=== PATIENT | female | born 1930 | race Caucasian/White ===

== ENCOUNTER 2016-07-07 20:59 | Inpatient (IN) | payer OTHER ==
[~2016-07-07] VITALS: Ht 152.4 cm; Wt 54.4 kg
[~2016-07-07 20:59] MED LIST: ASCO-339 PO; CHOL100038 PO; FLUT1DIS5 INH; FOLI-43 PO; MET2.5 PO; OMEP20CA4 PO
[2016-07-07 21:15] VITALS: BP_SYST 139
--- NOTE | 2016-07-07 21:15 | NUR ---
Patient to ER bed 4 to gown for evaluation. Side rails up. Report given to CAMILLE Young.
--- NOTE | 2016-07-07 21:26 | NUR ---
Patient to ER C/O generalized weakness & flu like symptoms, Patient states that for the past 4 days she had body aches, chills, fever, sore throat, dry cough, nasal congestion and dizziness. AAOx4, unlabored breathing, no signs of acute distress.
--- NOTE | 2016-07-07 21:36 | NUR ---
ER MD Barakat at bedside for evaluation
[2016-07-07] MEDS ORDERED: NACL 0.9% 1,000 ML IV ONE (22:00)
--- NOTE | 2016-07-07 22:20 | NUR ---
Terrazzo Finisher at bedside for blood draw. Patient identified x2
[2016-07-07 22:44] LABS: LYMPHOCYTES # (AUTO) 0.8 K/uL (1.0-5.5)
[2016-07-07 22:49] LABS: ANION GAP 4 (5-15); CALCIUM 9.4 mg/dL (8.4-11.0); CHLORIDE 109 mmol/L (98-107); CREATININE 0.74 mg/dL (0.55-1.30); GLUCOSE 139 mg/dL (70-99); POTASSIUM 3.6 mmol/L (3.5-5.1); SODIUM SERUM 137 mmol/L (136-145); UREA NITROGEN, BLOOD 13 mg/dL (8-21)
[2016-07-07 22:49] LABS: BASOPHILS # (AUTO) 0.2 K/uL (0.0-0.2); BASOPHILS % (AUTO) 1.3 % (0.0-2.0); EOSINOPHILS # (AUTO) 0.2 K/uL (0.0-0.4); EOSINOPHILS % (AUTO) 1.6 % (0.0-4.0); HEMATOCRIT 38.4 % (36-48); HEMOGLOBIN 12.4 g/dL (12.0-16.0); LYMPHOCYTES % (AUTO) 5.7 % (20.5-51.5); MEAN CORPUSCULAR HEMOGLOBIN 27 pg (27-31); MEAN CORPUSCULAR HGB CONC 32 % (32-36); MEAN CORPUSCULAR VOLUME 83 fL (79.0-98.0); MONOCYTES # (AUTO) 0.2 K/uL (0.0-1.0); MONOCYTES % (AUTO) 1.7 % (1.7-9.3); NEUTROPHILS # (AUTO) 13.1 K/uL (1.8-7.7); NEUTROPHILS % (AUTO) 89.7 % (40.0-70.0); PLATELET COUNT (AUTO) 378 K/uL (130-430); RED BLOOD CELL COUNT(AUTO) 4.63 MIL/uL (4.2-6.2); RED CELL DISTRIBUTION WIDTH 17.5 % (9.0-15.0); WHITE BLOOD COUNT (AUTO) 14.5 K/uL (4.8-10.8)
--- NOTE | 2016-07-07 22:50 | NUR ---
# 22 gauge angiocath placed to left forearm. Use of asceptic technique. Opsite placed over site. Blood return noted. Flushed with 10 cc of normal saline. No evidence of infiltration noted. Patient tolerated well.
[2016-07-07 22:54] LABS: ALANINE AMINOTRANSFERASE 12 U/L (12-78); ALBUMIN 3.5 g/dL (3.4-4.8); ASPARTATE AMINOTRANSFERASE 17 U/L (10-37); TOTAL BILIRUBIN 0.3 mg/dL (0.0-1.0); TOTAL PROTEIN, SERUM 7.5 g/dL (6.4-8.3)
--- NOTE | 2016-07-07 23:00 | NUR ---
SEVERE SEPSIS RISK ER MD Barakat aware. Awaiting orders
[2016-07-07 23:32] LABS: BILIRUBIN,URINE NEGATIVE (NEGATIVE); BLOOD, URINE NEGATIVE (NEGATIVE); CLARITY/URINE CLEAR (CLEAR); COLOR,URINE YELLOW (YELLOW); GLUCOSE,URINE NEGATIVE (NEGATIVE); KETONES,URINE NEGATIVE (NEGATIVE); LEUKOCYTE ESTERASE ,URINE NEGATIVE (NEGATIVE); NITRITE, URINE NEGATIVE (NEGATIVE); PH,URINE 6.5 (5.0-8.0); PROTEIN URINE NEGATIVE (NEGATIVE); UROBILINOGEN,URINE 0.2 (0.2-1.0)
[2016-07-07] MEDS ORDERED: RANI-362 PO (23:43)
--- NOTE | 2016-07-07 23:43 | NUR ---
Medication reconciliation completed with information provided by - verbal from patient. Any prior medication reconciliation on file was reviewed and corrected.
[2016-07-08] VITALS (8 sets, daily range): BP systolic 94–125
[2016-07-08] MEDS ORDERED: VANCOMYCIN HCL 1,000 MG in NS 250 ML IV ONE ×2
[2016-07-08] MEDS ORDERED: CEFEPIME 1 GM in D5W 50 ML IV ONE ×2
[2016-07-08] MEDS ORDERED: CEFEPIME 1 GM/VIAL (MAXIPIME) ONE (00:13)
[2016-07-08] MEDS ORDERED: VANCOMYCIN HCL 1000 MG/VIAL IV ONE (00:13)
[2016-07-08] MEDS ORDERED: NACL 0.9% 1,000 ML IV ONE (00:30)
--- NOTE | 2016-07-08 00:54 | NUR ---
Patient will be admitted to care of DR MADISON. Admitted to [facility] IN unit. Will go to room 135. Belongings list completed. Summary report printed. Report will be given at bedside.
--- NOTE | 2016-07-08 01:02 | NUR ---
Transfer to [facility] [place]. IV present no sign or symptom of infiltration.
--- NOTE | 2016-07-08 01:12 | NUR ---
Admission Note Received patient from ER with diagnosis of sepsis via gurney. Initial Plan of Care discussed-patient verbalized understanding. Family at bedside. Oriented to room, call light, pain management and safety.
--- NOTE | 2016-07-08 01:15 | NUR ---
INITIAL ADMISSION NOTE Patient resting on the bed. No acute distress. Respiration even and unlabored. AO x 4. Denied of pain. Skin warm and dry to touch. IV intact to LFA, no redness, no swelling, no drainage, infusing vancomycin from ER. at bed side. Discussed the safety issue, use call light when need help, and plan of care, verbally understanding. Safety measure maintained. Call light within reached. Bed in low position, side rails up. Will continue to monitor.
--- NOTE | 2016-07-08 01:40 | NUR ---
PATIENT REFUSED COOLING MEASURE Patient with mtnh=065.5, no acute distress. Offered cooling measure, however patient refused. Explained the risk and benefit of using cooling measure, verbally understanding but still refused. Will notify MD to obtain the order for fever.
--- NOTE | 2016-07-08 02:02 | NUR ---
PAGED PAGED DOCTOR OSVALDO FOR ORDERS SPOKE WITH NITA
--- NOTE | 2016-07-08 02:35 | NUR ---
VERIFY ALLERGIES Upon admission record, patient with allergies to Penicillins, Hydrocodone and Acetaminophen (from Vicodin). Per patient she was taking Tylenol at home for her fever and no allergy reaction to her. She never taking Vicodin. Allergies also verify with patient's daughter.
--- NOTE | 2016-07-08 02:55 | NUR ---
ORDER RECEIVED FROM RYAN MELÉNDEZ Informed Dr. Baires patient admitted with fever and no order for fever. MD with order Tylenol 650mg PO Q4hrs PRN for mild pain or fever. Also informed MD patient admitted diagnosis was sepsis, NS 2L bolus given in ER, lactic acid and blood culture done, no IVF ordered. MD ordered NS at 75ml/hr. Orders read back and okay to MD.
[2016-07-08] MEDS ORDERED: ACETAMINOPHEN 325 MG TABLET PO PRN (03:00)
[2016-07-08] MEDS: NACL 0.9% 1,000 ML IV SCH ×3 (03:41→20:31)
--- NOTE | 2016-07-08 03:42 | NUR ---
TYLENOL GIVEN Jcwq=457.5, Tylenol 650mg Po given as ordered. no acute distress. Still refused cooling measure. Explained still refused. Safety measure maintained. Call light within reached. Will continue to monitor
--- NOTE | 2016-07-08 04:50 | NUR ---
RECHECKED TEMP Rechecked temp=99.5, no acute distress. Respiration even and unlabored. Safety measure maintained. Call light within reached. Continue to monitor.
--- NOTE | 2016-07-08 08:00 | NUR ---
OPENING NOTES, PATIENT IN BED, NO C/O PAIN. NO SOB, NO DISTRESS. IV ACCESS PATENT AND INTACT, NO SWELLING. NO FEVER THIS TIME, VITALS WNL. , CALL LIGHT IN REACH, BED IN LOW POSITION. WILL CONT TO MONITOR. BED ALARM ON. INSTRUCTED TO CALL FOR ASSIST AND PAIN MEDS.
--- NOTE | 2016-07-08 10:00 | NUR ---
ROUNDING NOTES, PATIENT IN BED, NO C/O PAIN. NO SOB, NO DISTRESS. FAMILY AT BEDSIDE, CALL LIGHT IN REACH, BED IN LOW POSITION. WILL CONT TO MONITOR.
[2016-07-08] MEDS ORDERED: LEVALBUTEROL HCL 0.63 MG/3 ML VIAL.NEB INH PRN (11:30)
[2016-07-08] MEDS ORDERED: MAGNESIUM SULFATE 50 ML IV ONE (12:00)
[2016-07-08] MEDS: LEVOFLOXACIN 500 MG/D5W 100 ML IV SCH (13:38)
[2016-07-08] MEDS: methylPREDNISolone SOD SUCC/PF 62.5 MG/ML VIAL IVP SCH ×2 (13:54→22:47)
[2016-07-08] MEDS: ALBUTEROL SULFATE 0.083% 2.5 MG/3 ML VIAL.NEB INH SCH ×2 (16:00→19:46)
--- NOTE | 2016-07-08 16:08 | NUR ---
ROUNDING NOTES, PATIENT IN BED, GETTING BREATHING TREAMENT. NO SOB. NO DISTRESS. FAMILY AT BEDSIDE. SAFETY PRECAUTION IN PLACE. BED ALARM ON. WILL CONT TO MONITOR.
[2016-07-08] MEDS ORDERED: MONTELUKAST 10 MG TABLET PO SCH (18:00)
--- NOTE | 2016-07-08 18:10 | NUR ---
CLOSING NOTES, PT REMAINED AAO, NO SOB, NO DISTRESS, NO C/O PAIN, ALL MEDS OFFERED AND TAKEN. ALL NEEDS ATTENDED TO. NO UNTOWARD INCIDENT THIS SHIFT.CALL LIGHT IN REACH, BED IN LOW POSITION. SAFETY PRECAUTION IN PLACE. WILL ENDORSE TO NIGHT RN.
--- NOTE | 2016-07-08 19:57 | NUR ---
OPENING NOTE Pt. and bedside report received from day shift nurse. Pt. is AAO x 4 and resting in bed with no c/o pain or discomfort at this time. Respirations are even and unlabored with visible chest rise and fall. Pt. currently receiving scheduled breathing tx. IVF infusing as ordered to left f/a 22g; no s/s of infiltration but will continue to monitor. Plan of care discussed; pt. verbalized understanding. Safety and fall precautions in place. Educated pt. regarding bed alarm and to use call light for safety. Pt. verbalized understanding and stated she calls because she "feels weak and usually uses a cane at home." Call light to right hand. Will continue to monitor.
[2016-07-08] MEDS: FAMOTIDINE 20 MG TABLET PO SCH (20:31)
--- NOTE | 2016-07-08 20:31 | NUR ---
DUE MEDS/RANITIDINE Late entry due to pt. care. Due meds administered as ordered. Pt. tolerated well. Discussed pt.'s home medication with her "Ranitidine" and pt. stated she has the medication bottle at bedside. Hospital policy regarding home medications for safekeeping at the pharmacy was discussed with pt. Pt. agreed and medication bottle of Ranitidine was placed in medication bag and kept in [facility] room. Plastic medication bag receipt placed in pt.'s chart.
[2016-07-08] MEDS: NON-FORMULARY MEDICATION PO SCH (21:00)
[2016-07-09] VITALS: BP_SYST 113
--- NOTE | 2016-07-09 01:42 | NUR ---
ASSISTED PT. TO BATHROOM Assisted pt. to bathroom to void; gait is steady but weak, and tolerated well with assist. Pt. denies any pain or discomfort at this time and stated she "feels alot better than I was before being in the hospital." Safety and fall precautions in place. Bed alarm on. Will continue to monitor.
--- NOTE | 2016-07-09 02:40 | NUR ---
ROUNDS Pt. is resting quietly in bed with eyes closed. Respirations are even and unlabored with visible chest rise and fall. No s/s of acute distress. Safety and fall precautions in place. Bed alarm on. Call light to right hand. Will continue to monitor.
[2016-07-09 04:00] VITALS: BP_SYST 125
--- NOTE | 2016-07-09 04:30 | NUR ---
BATHROOM Late entry due to pt. care. Assisted pt. to bathroom; pt. voided and tolerated ambulating well with assist. Denies any pain or discomfort. Will continue to monitor.
[2016-07-09] MEDS: methylPREDNISolone SOD SUCC/PF 62.5 MG/ML VIAL IVP SCH ×2 (06:14→13:36)
--- NOTE | 2016-07-09 06:55 | NUR ---
DUE MEDS/CLOSING NOTES Due med administered as ordered; educated pt. regarding medication s/e. Pt. verbalized understanding. All needs met throughout shift. Safety and fall precautions in place. Pt. denies any pain or discomfort. BEd alarm on. Call light to right hand. Will endorse care to oncoming day shift nurse.
[2016-07-09] MEDS: ALBUTEROL SULFATE 0.083% 2.5 MG/3 ML VIAL.NEB INH SCH ×2 (07:31→11:26)
[2016-07-09 08:00] VITALS: BP_SYST 136
--- NOTE | 2016-07-09 08:00 | NUR ---
NOTE PT SITTING UP IN BED EATING HER BREAKFAST. JUST HAD HER HHN TREATMENT AT THIS TIME WELL. NO SOB/RESP DISTRESS OR PAIN/DISCOMFORT NOTED. IV IN LEFT FOREARM INTACT AND IVF'S INFUSING WELL. PT'S CANE AT BEDSIDE AT THIS TIME. CALL LIGHT WITHIN REACH.
[2016-07-09] MEDS: NON-FORMULARY MEDICATION PO SCH (08:31)
[2016-07-09] MEDS: FAMOTIDINE 20 MG TABLET PO SCH (08:31)
[2016-07-09 09:00] VITALS: BP_SYST 136
[2016-07-09] MEDS ORDERED: FOLIC ACID 1 MG TABLET PO SCH (09:00)
[2016-07-09] MEDS ORDERED: ASCORBIC ACID 500 MG TABLET PO SCH (09:00)
[2016-07-09] MEDS ORDERED: OMEPRAZOLE 20 MG CAPSULE.DR (PriLOSEC) PO SCH (09:00)
--- NOTE | 2016-07-09 10:00 | NUR ---
NOTE PT SITTING ON SIDE OF BED AND COMPLETED HER HYGIENE CARE AND THEN AMBULATED TO RESTROOM WITH IV POLE AND STAND BY ASSIST AT THIS TIME. PT WAS THEN ASSISTED BACK TO BED AND PT DENIES ANY NEEDS AT THIS TIME. CALL LIGHT WITHIN REACH.
[2016-07-09] MEDS: NACL 0.9% 1,000 ML IV SCH (10:30)
[2016-07-09] MEDS: LEVOFLOXACIN 500 MG/D5W 100 ML IV SCH (11:05)
--- NOTE | 2016-07-09 11:25 | NUR ---
NOTE PT'S DAUGHTER AT BEDSIDE AND UPDATE OF PT'S STATUS GIVEN AT THIS TIME. NO NEEDS NOTED. CALL LIGHT WITHIN REACH.
[2016-07-09 12:00] VITALS: BP_SYST 132
--- NOTE | 2016-07-09 12:30 | NUR ---
NOTE DR MOULTON AND DR MADISON SAW PT AND ASSESSMENT WAS COMPLETED AT THIS TIME. VERBAL DISCHARGE ORDERS WERE GIVEN AT THIS TIME. PT'S IVF'S AND IV WAS SALINE LOCKED AT THIS TIME. PT SITTING ON SIDE ON BED EATING HER LUNCH. NO SOB/RESP DISTRESS OR PAIN/DISCOMFORT WAS NOTED AT THIS TIME. CALL LIGHT WITHIN REACH.
--- NOTE | 2016-07-09 14:00 | NUR ---
NOTE PT DRESSED IN STREET CLOTHES AND IV WAS DC'D. CATH INTACT - NO SWELLING/REDNESS/BLEEDING OR TENDERNESS AT SITE NOTED AT THIS TIME. PT PACKED ALL HER BELONGINGS AND CHECKED SIDE TABLE AND DRAWERS FOR BELONGINGS. PT WAS GIVEN DISCHARGE INSTRUCTIONS AND QUESTIONS/CONCERNS WERE ANSWERED AT THIS TIME. NO NEEDS NOTED AT THIS TIME. PT RESTING IN BED WAITING FOR DAUGHTER TO PICK HER UP. CALL LIGHT WITHIN REACH.
--- NOTE | 2016-07-09 15:15 | NUR ---
NOTE PT OFF THE FLOOR VIA WHEELCHAIR TO PRIVATE CAR WITH ALL HER PERSONAL BELONGINGS. PT HAD HER DISCHARGE INSTRUCTIONS AND PRESCRIPTIONS, ALSO HAD HER CANE. NO SOB/RESP DISTRESS OR PAIN/DISCOMFORT NOTED. PT STABLE AT THIS TIME.
--- NOTE | 2016-07-12 16:46 | NUR ---
Discharge Follow Up Phone Call: BUILDING DISMANTLER called and spoke with pt ([phone]). Pt states that she is feeling excellent; pt's prescriptions have been filled; there are no questions regarding discharge or medication instructions; pt has a follow up appointment scheduled with Dr. Braxton on 07-14-16. Pt did not express any other needs or concerns and denied the need for additional follow up at this time. No further follow up phone calls required at this time.
== END 2016-07-09 15:15 | disposition home or self-care (01) | DRG 871 ==
LOC: SED 20:59 → SMU 07-08 00:55
PROVIDERS: ADMIT Internal Medicine Hospice and Palliative Medicine; ATTEND Internal Medicine Hospice and Palliative Medicine
DX: A41.9 Sepsis, unspecified organism (principal); J18.9 Pneumonia, unspecified organism; J45.901 Unspecified asthma with (acute) exacerbation; J06.9 Acute upper respiratory infection, unspecified; M06.9 Rheumatoid arthritis, unspecified; J30.9 Allergic rhinitis, unspecified; K21.9 Gastro-esophageal reflux disease without esophagitis; Z88.0 Allergy status to penicillin; Z79.899 Other long term (current) drug therapy; Z88.5 Allergy status to narcotic agent
CPT/HCPCS: 36415; 71010; 80053; 81003; 83605; 84484; 85025; 87040-TC; 93005; 94640; 96361; 96365; 96366; 96367; 99285; J0692; J1956; J2930; J3370; J3475; J7030; J7050; J7060

== ENCOUNTER 2020-03-14 08:43 | Emergency (ER) | payer OTHER ==
[~2020-03-14] VITALS: Ht 152.4 cm; Wt 49.9 kg
[~2020-03-14 08:43] MED LIST changes: -FLUT1DIS5 INH; +RANI-362 PO
[2020-03-14 08:45] VITALS: BP_SYST 126
[2020-03-14] MEDS ORDERED: ACETAMINOPHEN 325 MG TABLET PO ONE (09:30)
[2020-03-14 09:36] VITALS: BP_SYST 126
== END 2020-03-14 09:35 | disposition home or self-care (01) ==
LOC: SED 08:43
DX: M06.9 Rheumatoid arthritis, unspecified (principal); J45.909 Unspecified asthma, uncomplicated; Z79.899 Other long term (current) drug therapy; Z88.0 Allergy status to penicillin
CPT/HCPCS: 99282

== ENCOUNTER 2021-07-29 05:28 | Emergency (ER) | payer OTHER ==
[~2021-07-29] VITALS: Ht 152.4 cm; Wt 49.9 kg
[2021-07-29 05:39] VITALS: BP_SYST 138
--- NOTE | 2021-07-29 05:48 | NUR ---
Patient triaged and placed in room. VSS and patient appears in no acute distress at this time. Accompanied by son. Report given to CAMILLE Horan.
--- NOTE | 2021-07-29 06:00 | NUR ---
89 YR OLD FEMALE WITH COMPLAINT OF RIGHT LEG PAIN 8/ WITH UNSTEADY GAIT DUE TO PAIN. PT STATES IT FEELS LIKE A CRAMPING SENSATION AND SHE WS PRESCRIBED A STEROID AND A PAIN MEDICATION Y HER PRIMARY CARE DOCTOR. PT USES A WALKER FOR AMBULATION DAILY BUT HAS NEW ONSET OF RIGHT LEG PAIN THAT TRAVELS TO HER RIGHT HIP. SON AT THE BEDSIDE. MD CAROLINA Freitas THE BEDSIDE
[2021-07-29] MEDS ORDERED: IBUPROFEN 800 MG TABLET PO ONE (06:15)
[2021-07-29] MEDS ORDERED: NAPROXEN 250 MG TABLET PO ONE (06:30)
[2021-07-29] MEDS ORDERED: LIDOCAINE PATCH 5% 1 EA TP ONE (06:30)
[2021-07-29] MEDS ORDERED: MORPHINE 2 MG/ML INJ. SYRINGE IM ONE (06:30)
[2021-07-29] MEDS ORDERED: methocarbamoL 500 MG TABLET PO ONE (06:30)
[2021-07-29] MEDS ORDERED: LIDO1ADH22 TP ×2 (06:41→08:30)
[2021-07-29] MEDS ORDERED: METH-634 PO ×2 (06:41→08:30)
[2021-07-29] MEDS ORDERED: ACET-2634 PO ×2 (06:41→08:30)
[2021-07-29] MEDS ORDERED: NAPROXEN 250 MG TABLET ONE (06:54)
--- NOTE | 2021-07-29 07:30 | NUR ---
RECEIVED PT FROM RN. PT IS AAOX4 . PAIN RELIEF EFFECTIVE PT STATES I AM FEELING BACK TOGETHER AGAIN. DENIES COMPLAINTS AT THIS TIME.
--- NOTE | 2021-07-29 08:35 | NUR ---
Patient given written and verbal discharge instructions and verbalizes understanding. ER MD discussed with patient the results and treatment provided. Patient in stable condition. ID arm band removed. Rx of Robaxin, Tylenol and Lidocaine patch given. Patient educated on pain management and to follow up with PMD. Pain Scale greater than 6. Opportunity for questions provided and answered. Medication side effect fact sheet provided.
[2021-07-29 08:51] VITALS: BP_SYST 111
== END 2021-07-29 08:35 | disposition home or self-care (01) ==
LOC: SED 05:28
DX: M54.41 Lumbago with sciatica, right side (principal); J45.909 Unspecified asthma, uncomplicated; M06.9 Rheumatoid arthritis, unspecified; Z88.0 Allergy status to penicillin
CPT/HCPCS: 96372; 99284; J2270; 99283